=== PATIENT | female | born 1970 | race Two or more races ===

== ENCOUNTER 2024-08-15 15:24 | Emergency (ER) | payer OTHER ==
[~2024-08-15] VITALS: Ht 165.1 cm; Wt 108.9 kg
[2024-08-15] MEDS ORDERED: TENORMIN50 M1 (16:05)
[2024-08-15] MEDS ORDERED: LOSARTAN POTASS50 MG (16:05)
[2024-08-15] MEDS ORDERED: ATORVASTATIN CA40 MG PO (16:05)
[2024-08-15] MEDS ORDERED: GUAIFENESIN/DEXTROMETHORPHAN 100MG/10ML BLIST.PACK PO ONE (19:15)
[2024-08-15 20:14] LABS: HEMATOCRIT 41.6 % (36.0-45.00); HEMOGLOBIN 13.7 g/dL (12.0-15.00); MEAN CELL VOLUME 87.2 fL (80.00-100.00); MEAN CORPUSCULAR HEMOGLOBIN 28.8 pg (27.00-32.0); RED BLOOD COUNT 4.77 M/uL (4.00-6.00); RED CELL DISTRIBUTION WIDTH 15.8 % (11.5-14.5)
[2024-08-15 20:26] LABS: PLATELET COUNT 192 K/uL (150-450)
[2024-08-15] MEDS ORDERED: TUSSIN DM LIQU118 ML PO (20:35)
[2024-08-15] MEDS ORDERED: ZITHROMAX500 MG PO (20:35)
== END 2024-08-15 22:27 | disposition home or self-care (01) ==
LOC: ER 15:27
PROVIDERS: General Practice
DX: J06.9 Acute upper respiratory infection, unspecified (principal); J00 Acute nasopharyngitis [common cold]; I10 Essential (primary) hypertension; Z20.822 Contact with and (suspected) exposure to COVID-19